=== PATIENT | male | born 1985 | race Caucasian/White ===

== ENCOUNTER 2019-04-29 16:29 | Emergency (ER) | payer MEDICAID ==
[~2019-04-29] VITALS: Ht 170.2 cm; Wt 72.7 kg
[~2019-04-29 16:29] MED LIST: LISI-313 PO; RANI150T35 PO
[2019-04-29] MEDS ORDERED: SOD CHLORIDE 0.9% 1,000 ML IV STA (16:33)
[2019-04-29 16:36] VITALS: Ht 170.2 cm; Wt 72.7 kg
[2019-04-29 19:50] VITALS: BP 131/81; PULSE 78; RESP 15
== END 2019-04-29 19:51 | disposition home or self-care (01) ==
LOC: E/R 16:29
DX: R07.9 Chest pain, unspecified (principal)
CPT/HCPCS: 36415; 71045; 80053; 83690; 84484; 85025; 93005; J7030; Z7502